=== PATIENT | female | born 1995 | race Hispanic/Latino ===

== ENCOUNTER 2017-09-02 14:52 | Emergency (ER) | payer MEDICAID ==
[2017-09-02 15:36] LABS: BILIRUBIN,URINE Negative (NEGATIVE); COLOR,URINE Yellow (YELLOW); GLUCOSE, URINE (UA) Negative (NEGATIVE); KETONES,URINE Negative (NEGATIVE); LEUKOCYTE ESTERASE ,URINE Small (NEGATIVE); NITRATE,URINE Negative (NEGATIVE); OCCULT BLOOD,URINE Negative (NEGATIVE); PROTEIN,URINE Trace (NEGATIVE)
[2017-09-02 15:36] LABS: BASOPHILS % (AUTO) 0.6 % (0.0-5.0); EOSINOPHILS % (AUTO) 2.5 % (0.0-8.0); HEMATOCRIT 41.1 % (36-48); MEAN CORPUSCULAR HEMOGLOBIN 28.2 pg (27.0-33.0); MEAN CORPUSCULAR HGB CONC 33.6 g/dL (32.0-36.0); MEAN CORPUSCULAR VOLUME 83.8 fL (79-99); MONOCYTES % (AUTO) 5.1 % (3.0-13.0); NEUTROPHILS % (AUTO) 70.8 % (40.0-77.0); NUCLEATED RED BLOOD CELLS 0.1 % (0.0-0.19); PLATELET COUNT (AUTO) 395 K/uL (130-400); RED BLOOD CELL COUNT(AUTO) 4.91 MIL/uL (4.00-5.50); RED CELL DISTRIBUTION WIDTH 13.7 % (11.0-15.5); WHITE BLOOD COUNT (AUTO) 11.3 K/uL (4.8-10.8)
[2017-09-02 15:37] LABS: APPEARANCE,URINE SLIGHTLY CLOUDY (CLEAR)
[2017-09-02 15:38] LABS: HCG,QUAL RESULT POSITIVE (NEGATIVE)
[2017-09-02 15:46] LABS: CREATININE 0.7 mg/dL (0.5-1.5); POTASSIUM 3.9 mmol/L (3.5-5.1)
[2017-09-02 15:49] LABS: BACTERIA,URINE Few /HPF (None Seen); RBC,URINE 0-1 /HPF (0-1)
[2017-09-02 15:50] LABS: MUCUS,URINE Few LPF (None Seen); SQUAMOUS EPITHELIAL CELL,UR Moderate /HPF (0-2)
[2017-09-02 15:50] LABS: ALBUMIN 3.4 g/dL (3.5-5.0); BILIRUBIN,TOTAL 0.5 mg/dL (0.2-1.0); TOTAL PROTEIN, SERUM 7.2 g/dL (6.0-8.3)
[2017-09-02 15:51] LABS: YEAST,URINE BUDDING Rare /HPF (None Seen)
[2017-09-02] MEDS ORDERED: ONDANSETRON ODT 4 MG TAB ONE (16:04)
[2017-09-02] MEDS ORDERED: GUAIFENESIN-CODEINE 5 ML SYRUP ONE (16:06)
== END 2017-09-02 17:42 | disposition home or self-care (01) ==
LOC: EDH 14:52
DX: O21.9 Vomiting of pregnancy, unspecified (principal); O99.511 Diseases of the respiratory system complicating pregnancy, first trimester; J06.9 Acute upper respiratory infection, unspecified; Z3A.01 Less than 8 weeks gestation of pregnancy
CPT/HCPCS: 36415; 80053; 81001; 81025; 83690; 84702; 85025

== ENCOUNTER 2018-03-24 19:38 | Emergency (ER) | payer MEDICAID | END 2018-03-24 19:58 | disposition home or self-care (01) | LOC: EDH 19:38 | DX: O26.893 Other specified pregnancy related conditions, third trimester (principal); H65.191 Other acute nonsuppurative otitis media, right ear; Z90.49 Acquired absence of other specified parts of digestive tract; Z3A.36 36 weeks gestation of pregnancy ==

== ENCOUNTER 2021-04-04 15:11 | Emergency (ER) | payer MEDICAID, OTHER ==
[~2021-04-04] VITALS: Ht 157.5 cm; Wt 99.8 kg
[2021-04-04] MEDS ORDERED: CYCLOBENZAPRINE HCL 10 MG TABLET PO ONE (17:30)
[2021-04-04] MEDS ORDERED: KETOROLAC 60 MG VIAL (30MG/ML) IM ONE (17:30)
[2021-04-04] MEDS ORDERED: MELO7.5T12 PO (17:52)
[2021-04-04] MEDS ORDERED: CYCL10TA16 PO (17:52)
[2021-04-04 18:20] VITALS: BP 132/84
== END 2021-04-04 18:25 | disposition home or self-care (01) ==
LOC: EDH 15:11
DX: M94.0 Chondrocostal junction syndrome [Tietze] (principal); F17.200 Nicotine dependence, unspecified, uncomplicated; Z79.1 Long term (current) use of non-steroidal anti-inflammatories (NSAID)
CPT/HCPCS: 36415; 71045; 84484; 84703; 93005; 96372; 99285; J1885

== ENCOUNTER 2022-08-14 19:52 | Emergency (ER) | payer OTHER ==
[~2022-08-14] VITALS: Ht 154.9 cm; Wt 95.3 kg
[~2022-08-14 19:52] MED LIST: CYCL10TA16 PO; MELO7.5T12 PO
[2022-08-14 21:15] VITALS: BP 116/60
[2022-08-14] MEDS ORDERED: PHEN118L19 PO (21:29)
[2022-08-14] MEDS ORDERED: AMOX-426 PO (21:29)
[2022-08-14] MEDS ORDERED: IBUP-2070 PO (21:29)
[2022-08-14] MEDS ORDERED: KETOROLAC 60 MG VIAL (30MG/ML) IM ONE (21:30)
[2022-08-14] MEDS ORDERED: DEXAMETHASONE SOD PHOSPHATE 4 MG/ML 1ML VIAL IM ONE (21:30)
[2022-08-14] MEDS ORDERED: CEFTRIAXONE 1G VIAL IM ONE (21:30)
== END 2022-08-14 22:08 | disposition home or self-care (01) ==
LOC: EDH 19:52
DX: J02.0 Streptococcal pharyngitis (principal); F17.200 Nicotine dependence, unspecified, uncomplicated; Z98.890 Other specified postprocedural states
CPT/HCPCS: 99284; 96372 ×3; J1100; J0696; J1885

== ENCOUNTER 2022-09-29 01:53 | Emergency (ER) | payer OTHER ==
[~2022-09-29] VITALS: Ht 154.9 cm; Wt 101.2 kg
[~2022-09-29 01:53] MED LIST changes: +AMOX-426 PO; +IBUP-2070 PO; +PHEN118L19 PO
[2022-09-29 04:48] VITALS: BP 122/64
[2022-09-29 04:57] LABS: BASOPHILS % (AUTO) 0.4 % (0.0-5.0); HEMATOCRIT 39.4 % (36-48); LYMPHOCYTES % (AUTO) 24.2 % (21.0-51.0); MEAN CORPUSCULAR HEMOGLOBIN 26.3 pg (27.0-33.0); MEAN CORPUSCULAR HGB CONC 32.7 g/dL (32.0-36.0); MEAN CORPUSCULAR VOLUME 80.4 fL (79-99); NEUTROPHILS % (AUTO) 67.9 % (40.0-77.0); PLATELET COUNT (AUTO) 391 K/uL (130-400); WHITE BLOOD COUNT (AUTO) 13.7 K/uL (4.8-10.8)
[2022-09-29 04:59] LABS: APPEARANCE,URINE CLEAR (CLEAR); BILIRUBIN,URINE NEGATIVE (NEGATIVE); COLOR,URINE LIGHT-YELLOW (YELLOW); GLUCOSE, URINE (UA) NEGATIVE (NEGATIVE); KETONES,URINE NEGATIVE (NEGATIVE); LEUKOCYTE ESTERASE ,URINE NEGATIVE Leu/uL (NEGATIVE); NITRATE,URINE NEGATIVE (NEGATIVE); OCCULT BLOOD,URINE NEGATIVE (NEGATIVE); PROTEIN,URINE 10 mg/dL (NEGATIVE); UROBILINOGEN,URINE 0.2 mg/dL (0.2-1.0)
[2022-09-29] MEDS ORDERED: HYDR50CA50 PO (04:59)
[2022-09-29 05:00] LABS: CREATININE 0.9 mg/dL (0.5-1.5); HCG,QUALITATIVE URINE NEGATIVE (NEGATIVE); POTASSIUM 3.6 mmol/L (3.5-5.1)
[2022-09-29] MEDS ORDERED: PROMETHAZINE HCL 25 MG/ML 1ML AMPULE IM ONE (05:00)
[2022-09-29] MEDS ORDERED: KETOROLAC 60 MG VIAL (30MG/ML) IM ONE (05:00)
[2022-09-29 05:05] LABS: ALBUMIN 3.5 g/dL (3.5-5.0); TOTAL PROTEIN, SERUM 7.2 g/dL (6.0-8.3)
== END 2022-09-29 05:38 | disposition home or self-care (01) ==
LOC: EDH 01:53
DX: F41.9 Anxiety disorder, unspecified (principal); F17.200 Nicotine dependence, unspecified, uncomplicated; Z79.899 Other long term (current) drug therapy
CPT/HCPCS: 99284; 80053; 85025; 81003; 81025; 36415; 96372 ×2; J2550; J1885

== ENCOUNTER 2023-03-12 01:09 | Emergency (ER) | payer OTHER ==
[~2023-03-12] VITALS: Ht 157.5 cm; Wt 103.0 kg
[~2023-03-12 01:09] MED LIST changes: +HYDR50CA50 PO
[2023-03-12 02:37] LABS: BASOPHILS # (AUTO) 0.05 K/uL (0.00-0.20); BASOPHILS % (AUTO) 0.4 % (0.0-5.0); EOSINOPHILS # (AUTO) 0.43 K/uL (0.00-0.70); EOSINOPHILS % (AUTO) 3.6 % (0.0-8.0); HEMATOCRIT 37.3 % (36-48); IMMATURE GRANULOCYTE ABSOLUTE 0.04 K/uL (0-1); LYMPHOCYTES % (AUTO) 33.6 % (21.0-51.0); MEAN CORPUSCULAR HEMOGLOBIN 26.5 pg (27.0-33.0); MEAN CORPUSCULAR VOLUME 80.2 fL (79-99); MONOCYTES # (AUTO) 0.6 K/uL (0.1-1.0); MONOCYTES % (AUTO) 4.9 % (3.0-13.0); NEUTROPHILS # (AUTO) 6.8 K/uL (1.8-7.7); NEUTROPHILS % (AUTO) 57.2 % (40.0-77.0); PLATELET COUNT (AUTO) 393 K/uL (130-400); RED BLOOD CELL COUNT(AUTO) 4.65 MIL/uL (4.00-5.50); RED CELL DISTRIBUTION WIDTH 14.6 % (11.0-15.5); WHITE BLOOD COUNT (AUTO) 11.9 K/uL (4.8-10.8)
[2023-03-12 02:48] LABS: CREATININE 0.8 mg/dL (0.5-1.5); POTASSIUM 4.1 mmol/L (3.5-5.1)
[2023-03-12 02:53] LABS: ALBUMIN 3.4 g/dL (3.5-5.0); BILIRUBIN,TOTAL 0.3 mg/dL (0.2-1.0); TOTAL PROTEIN, SERUM 7.2 g/dL (6.0-8.3)
[2023-03-12 03:55] LABS: APPEARANCE,URINE CLEAR (CLEAR); BILIRUBIN,URINE NEGATIVE (NEGATIVE); COLOR,URINE LIGHT-YELLOW (YELLOW); GLUCOSE, URINE (UA) NEGATIVE (NEGATIVE); KETONES,URINE NEGATIVE (NEGATIVE); LEUKOCYTE ESTERASE ,URINE NEGATIVE Leu/uL (NEGATIVE); NITRATE,URINE NEGATIVE (NEGATIVE); OCCULT BLOOD,URINE SMALL (NEGATIVE); PH,URINE 6.5 (5.0-8.0); PROTEIN,URINE NEGATIVE (NEGATIVE); UROBILINOGEN,URINE 0.2 mg/dL (0.2-1.0)
[2023-03-12 03:57] LABS: ADD UA MICROSCOPIC YES
[2023-03-12 03:58] LABS: MUCUS,URINE RARE LPF (None Seen); RBC,URINE 0-1 /HPF (0-1); SQUAMOUS EPITHELIAL CELL,UR RARE /HPF (0-2)
[2023-03-12] MEDS ORDERED: IBUP-1493 PO (06:34)
[2023-03-12] MEDS ORDERED: CYCL-309 PO (06:34)
[2023-03-12 06:42] VITALS: BP 129/64; PULSE 60; RESP 17; O2SAT 99
== END 2023-03-12 06:48 | disposition home or self-care (01) ==
LOC: EDH 01:09
DX: R10.9 Unspecified abdominal pain (principal); F17.200 Nicotine dependence, unspecified, uncomplicated; Z79.899 Other long term (current) drug therapy; Z90.49 Acquired absence of other specified parts of digestive tract
CPT/HCPCS: 36415; 74176; 80053; 81001; 83690; 84703; 85025

== ENCOUNTER 2023-06-10 18:46 | Emergency (ER) | payer OTHER ==
[~2023-06-10] VITALS: Ht 157.5 cm; Wt 101.6 kg
[~2023-06-10 18:46] MED LIST changes: +CYCL-309 PO; +IBUP-1493 PO
[2023-06-10 18:59] VITALS: BP 168/59; PULSE 66; RESP 14
== END 2023-06-11 01:34 | disposition left against medical advice (07) ==
LOC: EDH 18:46
DX: R10.9 Unspecified abdominal pain (principal); Z53.21 Procedure and treatment not carried out due to patient leaving prior to being seen by health care provider
CPT/HCPCS: 99281

== ENCOUNTER 2023-08-18 09:19 | Emergency (ER) | payer OTHER ==
[~2023-08-18] VITALS: Ht 157.5 cm; Wt 99.8 kg
[2023-08-18 10:10] LABS: RAPID GROUP A STREP negative (NEGATIVE)
[2023-08-18 10:33] LABS: SARS-CoV-2, RNA, NAAT POSITIVE SARS CoV-2 (NEGATIVE)
[2023-08-18 10:37] LABS: INFLUENZA TYPE A NEGATIVE FOR TYPE A (NEG); INFLUENZA TYPE B NEGATIVE FOR TYPE B (NEG)
[2023-08-18] MEDS ORDERED: AZIT250T9 PO (11:18)
[2023-08-18] MEDS ORDERED: PRED20TA3 PO (11:18)
[2023-08-18 12:05] VITALS: BP 158/96; PULSE 66; RESP 16; O2SAT 99
== END 2023-08-18 12:06 | disposition home or self-care (01) ==
LOC: EDH 09:19
DX: U07.1 COVID-19 (principal); J02.9 Acute pharyngitis, unspecified; F41.9 Anxiety disorder, unspecified; F17.200 Nicotine dependence, unspecified, uncomplicated; Z79.1 Long term (current) use of non-steroidal anti-inflammatories (NSAID); Z90.49 Acquired absence of other specified parts of digestive tract
CPT/HCPCS: 87635; 87804; 87880